=== PATIENT | female | born 1940 | race Caucasian/White ===

== ENCOUNTER → 2017-05-05 | Day surgery (SDC) | payer MEDICARE, OTHER, MEDICAID ==
[~2017-05-05] MED LIST: IPRATRPIUM/ALBUTEROL 0.5/2.5MG 3 ML NEBU.; LIDOCAINE 2% 100 MG/5 ML SYRINGE.; ONDANSETRON PF 4 MG/2 ML VIAL.; PROPOFOL 40 ML IV
[2017-05-05] MEDS: IV RINGERS,LACTATED 1000ML 1,000 ML IV (07:55)
[2017-05-05] MEDS: ONDANSETRON PF 4 MG/2 ML VIAL. IV (08:41)
[2017-05-05] MEDS: ALBUTEROL SULFATE 2.5 MG/3 ML NEBU. NEB (10:05)
== END ==
LOC: SURG 07:13
DX: K22.11 Ulcer of esophagus with bleeding (principal); K21.0 Gastro-esophageal reflux disease with esophagitis; K44.9 Diaphragmatic hernia without obstruction or gangrene; D50.9 Iron deficiency anemia, unspecified; I25.2 Old myocardial infarction; J45.909 Unspecified asthma, uncomplicated; F32.9 Major depressive disorder, single episode, unspecified; M19.90 Unspecified osteoarthritis, unspecified site; Z87.891 Personal history of nicotine dependence
CPT/HCPCS: 43239; 88305; J2405; J2704; J7620

== ENCOUNTER 2021-01-21 17:20 | Inpatient (IN) | payer MEDICARE, OTHER, MEDICAID ==
[~2021-01-21] VITALS: Ht 149.9 cm; Wt 43.6 kg
[~2021-01-21 17:20] MED LIST changes: +ATOR40TA PO; +Aspirin PO; +CITA40TA12 PO; +CLOP75TA57 PO; -IPRATRPIUM/ALBUTEROL 0.5/2.5MG 3 ML NEBU.; -LIDOCAINE 2% 100 MG/5 ML SYRINGE.; +LORA10TA68 PO; +LOSA-73 PO; +LOSA100T14 PO; +METO25TA2 PO; +NITR0.4T24 SL; +Nicotine TD; -ONDANSETRON PF 4 MG/2 ML VIAL.; -PROPOFOL 40 ML IV
[2021-01-21] MEDS ORDERED: FERR-36 PO (17:41)
[2021-01-21] MEDS ORDERED: TICA90TA PO (17:42)
[2021-01-21] MEDS ORDERED: CALC500T54 PO (17:44)
[2021-01-21 18:12] VITALS: BP 128/78
[2021-01-21 19:00] VITALS: BP 140/82
[2021-01-21 22:48] VITALS: BP 138/72
[2021-01-22 02:51] VITALS: BP 142/82
[2021-01-22 07:00] VITALS: BP 119/74
[2021-01-22] MEDS ORDERED: FERROUS SULFATE 325 MG TABLET. PO SCH (08:00)
[2021-01-22] MEDS: METOPROLOL SUCC 24HR ER 25 MG TAB.ER.24H. PO SCH ×2 (08:56→14:53)
[2021-01-22] MEDS: CALCIUM CARBONATE 500 MG TABLET PO SCH (08:56)
[2021-01-22 11:44] VITALS: BP 134/73
--- NOTE | 2021-01-22 12:13 | PDOC2 ---
GI CONSULT Date of Service: DATE: 01/22/21 TIME: 12:13 Reason For Consult: GI bleed HPI: HPI: 80 y/o female transferred from [facility] yesterday. We are asked to see this afternoon due to concern for GI bleed. Feeling weak for months. Found it difficult at home to walk from living room to restroom. Noted some shortness of breath. Says one of her doctors said it was her heart. H/o ID/CAD w/ stent placement in 2014 (started on ASA and Plavix) and 10/2020 at [facility] (Plavix stopped, replaced w/ Brilinta, continued on ASA). Associated w/ decreased appetite ("just not interested") and weight loss (30 pounds over 1-2 years, probably 7 pounds recently). At [facility] on Wednesday, felt like she was going to faint while on the toilet so she lowered herself to the ground and vomited. At [facility]: Hgb 6.5, MCV 81. Normal INR, plt, BUN. +Hemoccult, negative COVID. Unremarkable CXR. Transfused 1 unit pRBCs, Hgb improved to mid 8 range. H/o "indigestion" - she takes something OTC that starts w/ a P every day. No dysphagia. Vomits acid after getting out of the shower sometimes at home - chronic issue. No abd pain. No hematemesis or hematochezia. She indicates a lifelong h/o anemia and has been on iron QD for some time. Not sure about baseline Hgb range. Stools chronically dark. Iron previously caused constipation but she reports having diarrhea (loose with some chunks) since changing from Plavix to Brilinta in Oct. Has never had a blood transfusion til now. EGD and colonoscopy w/ Dr. Patrick in 2018 showed reflux (distal esophageal biopsy negative for Dior's, dysplasia, and malignancy) and diverticulosis - colonoscopy only to sigmoid due to angulation. No GB, liver, pancreas, or PUD history. Takes Tylenol sometimes, no NSAIDs. Says she was given regular food last night but hasn't been allowed to eat today. Having some indigestion now. No stools since Wednesday. Thinks transfusion helped her appetite - she's starving and would like to eat because the food is good here. She wants to know the plan. PMH: PMH: CAD w/ stents, COPD, HTN, arthritis, depression, tachycardia knee surgery, appendectomy FH: Family History: Cancer (breast) Social History: Smoke: Quit ALCOHOL: none Drugs: None ROS: GEN: Denies fevers, chills, sweats HEENT: Denies blurred vision, sore throat CV: Denies chest pain RESP: +SOA GI: Per HPI : Denies hematuria, dysuria ENDO: Denies weight changes NEURO: Denies confusion, dizziness MSK: +weakness SKIN: Denies jaundice, pruritus Vitals: Vitals: Vital Signs Date Time Temp Pulse Resp B/P (MAP) Pulse Ox O2 Delivery O2 Flow Rate FiO2 01/22/21 11:44 98.6 108 16 134/73 (93) 98 Room Air 98.6 Labs: Labs: Laboratory Tests Test 01/22/21 07:20 Hemoglobin 8.6 g/dL (12.0-15.5) Allergies: Coded Allergies: amlodipine (Verified Allergy, Intermediate, 05/05/17) morphine (Verified Allergy, Intermediate, 05/05/17) varenicline (Verified Allergy, Intermediate, 05/05/17) PE: GEN: NAD, thin HEENT: Atraumatic, PERRL LUNGS: CTAB anteriorly HEART: tachycardic (about 109) ABD: NABS, S/ND/NT EXTREMITY: No edema SKIN: No rashes, no jaundice NEURO/PSYCH: A & O 3 A/P: A/P: Near syncope, vomiting - no recurrence Weakness, SOA, anorexia, weight loss Anemia, +Hemoccult - apparently chronic, unclear baseline (10-12 range here in 2014) - no obvious bleeding, Hgb improved/stable w/ transfusion - on iron w/ chronically dark stools H/o GERD - 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 D/w Dr. Patrick - okay to eat per GI. Agree w/ PPI - change to PO. Continue iron - consider IV. Monitor Hgb, check anemia parameters. Defer any need for IVF to primary. WESLEY WHEELER Jan 22, 2021 12:13
--- NOTE | 2021-01-22 12:27 | HP ---
DATE OF SERVICE: 01/22/2021 ADMIT DATE: 01/21/2021 CHIEF COMPLAINT: Hematochezia and anemia. HISTORY OF PRESENT ILLNESS: The patient is a pleasant 80-year-old female who presented to [facility] 2 nights ago. They called me. I accepted her as a transfer but for some reason she did not come at night. She came the following day, which was last night. Now, she is on the medical floor. I am consulting GI for evaluation of her GI bleed. It should be noted that her hemoglobin was 6.5 as I recall when she was at [facility]. She did get a unit of blood. Today, her hemoglobin is up to 8.6. PAST MEDICAL HISTORY: Anemia, chronic anticoagulation, arrhythmias, depression, anxiety. ALLERGIES: AMLODIPINE, MORPHINE AND VARENICLINE. FAMILY HISTORY: Hypertension. SOCIAL HISTORY: She does not drink, smoke or take drugs. MEDICATIONS: Reviewed. Please refer to the MRAD. She is on iron, Brilinta, Toprol-XL, Celexa, calcium and aspirin. REVIEW OF SYSTEMS: GENERAL: No history of weight change, weakness or fevers. SKIN: No bruising, hair changes or rashes. EYES: No blurred, double or loss of vision. NOSE AND THROAT: No history of nosebleeds, hoarseness or sore throat. HEART: No history of palpitations, chest pain or shortness of breath on exertion. LUNGS: Denies cough, hemoptysis, wheezing or shortness of breath. GASTROINTESTINAL: She complains of hematochezia. GENITOURINARY: No history of frequency, urgency, hesitancy or nocturia. NEUROLOGIC: Denies history of numbness, tingling, tremor or weakness. PSYCHIATRIC: No history of panic, anxiety or depression. ENDOCRINE: No history of heat or cold intolerance, polyuria or polydipsia. EXTREMITIES: Denies muscle weakness, joint pain, pain on walking or stiffness. PHYSICAL EXAMINATION: VITALS: Within normal limits and are stable. GENERAL: No apparent distress. Alert and oriented. HEENT: Normal cephalic atraumatic, external auditory canals are patent. Eyes: Extraocular muscles are intact, pupils are equally round and reactive to light and accommodation. MUSCULOSKELETAL: Well developed, well nourished, good range of motion. ENDOCRINE: No thyromegaly was palpated. LYMPHATICS: No cervical chain or axillary nodes were noted. HEMATOPOIETIC: No bruising. NECK: Supple, no JVD, no thyromegaly was noted. LUNGS: Clear to auscultation in all lung beltre without rhonchi or wheezing. HEART: RRR, S1, S2 present. Peripheral pulses intact, no obvious murmurs were noted. ABDOMEN: Soft, nontender. Positive bowel sounds, no organomegaly, normal bowel sounds. EXTREMITIES: Without any cyanosis, clubbing, or edema. Pedal pulses intact, Homans sign is negative. NEUROLOGIC: Normal speech, normal tone. A and O x 3, moves all extremities, no obvious focal deficits. PSYCHIATRIC: Normal affect, normal mood. Stable. SKIN: No ulcerations or rashes, good skin turgor, no jaundice. VASCULAR: Good capillary refill, neurovascular bundle appears to be intact. LABORATORY DATA: Hemoglobin is 8.6. ASSESSMENT AND PLAN: Gastrointestinal bleed. The patient has been admitted. We will trend her hemoglobin. Consult GI. IV Protonix. We will continue her home meds except for the Brilinta and aspirin for now and hope to resume those in the next day or so if her hemoglobin stabilizes. SCDs to lower extremities. VICTOR HUGO/MERRICK DR: VICTOR HUGO/inocencia TID: [id number]
[2021-01-22] MEDS ORDERED: PANTOPRAZOLE IV PUSH 40 MG VIAL. IVP SCH (12:30)
[2021-01-22] MEDS: FERROUS SULFATE 325 MG TABLET. PO SCH ×2 (13:56→17:21)
--- NOTE | 2021-01-22 14:19 | NUR ---
SW following. Discussed with RN, pt from home alone, room air, NPO. RN advised no SW needs at this time. SW will continue to follow.
[2021-01-22 15:00] VITALS: BP 116/62
[2021-01-22 19:00] VITALS: BP 137/71
[2021-01-22] MEDS ORDERED: CITALOPRAM 20 MG TABLET. PO SCH (21:00)
[2021-01-22 23:00] VITALS: BP 150/83
[2021-01-23 03:00] VITALS: BP 137/80
[2021-01-23 06:17] LABS: BASO # 0.1 x10^3/uL (0.0-0.2); BASO % 1 % (0-3); EOS # 0.4 x10^3/uL (0.0-0.7); EOS % 4 % (0-3); HEMATOCRIT 27.4 % (36.0-47.0); HEMOGLOBIN 8.5 g/dL (12.0-15.5); LYMPH % 12 % (24-48); MEAN CORPUSCULAR HEMOGLOBIN 26 pg (25-35); MEAN CORPUSCULAR HGB CONC 31 g/dL (31-37); MEAN CORPUSCULAR VOLUME 83 fL (79-100); MONO % 11 % (0-9); NEUT # 6.1 x10^3/uL (1.8-7.7); NEUT % 71 % (31-73); PLATELET COUNT 552 x10^3/uL (140-400); RED CELL DISTRIBUTION WIDTH 17.3 % (11.5-14.5); WHITE BLOOD COUNT 8.5 x10^3/uL (4.0-11.0)
[2021-01-23 06:51] LABS: CALCIUM 7.6 mg/dL (8.5-10.1); CREATININE 1.1 mg/dL (0.6-1.0); POTASSIUM 4.1 mmol/L (3.5-5.1)
[2021-01-23 07:00] VITALS: BP 153/82
[2021-01-23] MEDS ORDERED: PANTOPRAZOLE 40 MG TABLET.DR. PO SCH (07:30)
[2021-01-23] MEDS: FERROUS SULFATE 325 MG TABLET. PO SCH ×2 (07:31→11:24)
[2021-01-23] MEDS: METOPROLOL SUCC 24HR ER 25 MG TAB.ER.24H. PO SCH (09:04)
[2021-01-23] MEDS: CALCIUM CARBONATE 500 MG TABLET PO SCH (09:04)
--- NOTE | 2021-01-23 10:29 | PDOC ---
Date of Service: DATE: 01/23/21 TIME: 10:24 Subjective: Subjective: Feels better. No bleeding. Eating some. Wants to go home. Doesn't want to resume Brilinta - she feels so much better off of it - also acknowledges she might feel better after transfusion. Objective: Vital Signs: Vital Signs Date Time Temp Pulse Resp B/P (MAP) Pulse Ox O2 Delivery O2 Flow Rate FiO2 01/23/21 09:04 90 153/82 01/23/21 07:38 Room Air 01/23/21 07:00 98.8 18 97 98.8 Labs: Laboratory Tests Test 01/23/21 03:55 White Blood Count 8.5 x10^3/uL Red Blood Count 3.30 x10^6/uL Hemoglobin 8.5 g/dL Hematocrit 27.4 % Mean Corpuscular Volume 83 fL Mean Corpuscular Hemoglobin 26 pg Mean Corpuscular Hemoglobin Concent 31 g/dL Red Cell Distribution Width 17.3 % Platelet Count 552 x10^3/uL Neutrophils (%) (Auto) 71 % Lymphocytes (%) (Auto) 12 % Monocytes (%) (Auto) 11 % Eosinophils (%) (Auto) 4 % Basophils (%) (Auto) 1 % Neutrophils # (Auto) 6.1 x10^3/uL Lymphocytes # (Auto) 1.0 x10^3/uL Monocytes # (Auto) 1.0 x10^3/uL Eosinophils # (Auto) 0.4 x10^3/uL Basophils # (Auto) 0.1 x10^3/uL Sodium Level 134 mmol/L Potassium Level 4.1 mmol/L Chloride Level 102 mmol/L Carbon Dioxide Level 25 mmol/L Anion Gap 7 Blood Urea Nitrogen 18 mg/dL Creatinine 1.1 mg/dL Estimated GFR (Cockcroft-Gault) 48.0 Glucose Level 62 mg/dL Calcium Level 7.6 mg/dL PE: GEN: NAD LUNGS: CTAB HEART: tachycardic ABD: S/ND/NT NEURO/PSYCH: A & O 3 A/P: Near syncopeIDA/ACD, +Hemoccult H/o GERD and diverticular disease - last scopes 2018 (incomplete colonoscopy due to angulation) CAD on ASA and Brilinta (currently held) -- Hgb stable, no obvious bleeding, tolerating diet, and feeling stronger w/ transfusions. Consider DC soon - needs PPI Rx. Continue iron in some form (increased from QD to TID here - tolerating so far) and PPI. Monitor Hgb as outpt w/ PCP, consider GI f/u if indicated. She does not want to resume Brilinta - she prefers Plavix - defer to primary/consider cardiology opinion (see Dr. Soto). Justicifation of Admission Dx: Justifications for Admission: Justification of Admission Dx: Yes WESLEY WHEELER Jan 23, 2021 10:29
[2021-01-23 11:00] VITALS: BP 122/69
--- NOTE | 2021-01-23 11:15 | PDOC ---
[employer] PROGRESS NOTE Date of Service DOS: DATE: 01/23/21 TIME: 11:10 Chief Complaint Chief Complaint Hematochezia anemia History of the following: - Anemia -Chronic Anticoagulation -Arrhythmias -Depression -Anxiety History of Present Illness History of Present Illness 01/23 Patient seen and examined, in NAD Chart Reviewed Discussed with RN and Supervisor [employer] Possible discharge home today Vitals/I&O Vitals/I&O: Vital Signs Date Time Temp Pulse Resp B/P (MAP) Pulse Ox O2 Delivery O2 Flow Rate FiO2 01/23/21 09:04 90 153/82 01/23/21 07:38 Room Air 01/23/21 07:00 98.8 18 97 98.8 I & O 01/22/21 01/22/21 01/23/21 15:00 23:00 07:00 Intake Total 0 ml Balance 0 ml Physical Exam General: Alert, Oriented X3 Heart: Regular rate Lungs: Clear Abdomen: Soft Extremities: No clubbing Skin: No rashes Labs Labs: Laboratory Tests Test 01/23/21 03:55 White Blood Count 8.5 x10^3/uL (4.0-11.0) Red Blood Count 3.30 x10^6/uL (3.50-5.40) Hemoglobin 8.5 g/dL (12.0-15.5) Hematocrit 27.4 % (36.0-47.0) Mean Corpuscular Volume 83 fL (79-100) Mean Corpuscular Hemoglobin 26 pg (25-35) Mean Corpuscular Hemoglobin Concent 31 g/dL (31-37) Red Cell Distribution Width 17.3 % (11.5-14.5) Platelet Count 552 x10^3/uL (140-400) Neutrophils (%) (Auto) 71 % (31-73) Lymphocytes (%) (Auto) 12 % (24-48) Monocytes (%) (Auto) 11 % (0-9) Eosinophils (%) (Auto) 4 % (0-3) Basophils (%) (Auto) 1 % (0-3) Neutrophils # (Auto) 6.1 x10^3/uL (1.8-7.7) Lymphocytes # (Auto) 1.0 x10^3/uL (1.0-4.8) Monocytes # (Auto) 1.0 x10^3/uL (0.0-1.1) Eosinophils # (Auto) 0.4 x10^3/uL (0.0-0.7) Basophils # (Auto) 0.1 x10^3/uL (0.0-0.2) Sodium Level 134 mmol/L (136-145) Potassium Level 4.1 mmol/L (3.5-5.1) Chloride Level 102 mmol/L (98-107) Carbon Dioxide Level 25 mmol/L (21-32) Anion Gap 7 (6-14) Blood Urea Nitrogen 18 mg/dL (7-20) Creatinine 1.1 mg/dL (0.6-1.0) Estimated GFR (Cockcroft-Gault) 48.0 Glucose Level 62 mg/dL (70-99) Calcium Level 7.6 mg/dL (8.5-10.1) Assessment and Plan Assessmemt and Plan Hematochezia anemia History of the following: - Anemia -Chronic Anticoagulation -Arrhythmias -Depression -Anxiety PLAN: Probable discharge to home today For now continue the following: -Iron Supplementation -Protonix -Cardiac Monitoring -Encourage PO intake -Trend Labs -DVT Prophylaxis -Home Meds -Full Code Comment Review of Relevant I have reviewed the following items neville (where applicable) has been applied. Medications: Current Medications Medications (Trade) Dose Ordered Sig/Violet Route PRN Reason Start Time Stop Time Status Last Admin Dose Admin Citalopram Hydrobromide (CeleXA) 40 mg HS PO 01/22/21 21:00 01/22/21 20:28 Pantoprazole Sodium (PROTONIX VIAL for IV PUSH) 40 mg DAILYAC IVP 01/22/21 12:30 01/22/21 12:50 DC 01/22/21 12:31 Pantoprazole Sodium (Protonix) 40 mg DAILYAC PO 01/23/21 07:30 01/23/21 07:31 Ferrous Sulfate (Feosol) 325 mg TIDWMEALS PO 01/22/21 13:30 01/23/21 07:31 Justifications for Admission Other Justification YADI THORNTON III DO Jan 23, 2021 11:15
[2021-01-23] MEDS ORDERED: PANT40TA77 PO (11:39)
--- NOTE | 2021-01-23 12:35 | DS ---
DATE OF DISCHARGE: 01/23/2021 ADMITTING DIAGNOSIS: Gastrointestinal bleed. DISCHARGE DIAGNOSES: Resolving gastrointestinal bleed, history of gastroesophageal reflux disease, chronic anticoagulation, chronic anemia, hypertension, previous arrhythmias, history of diverticulosis and coronary artery disease. CONSULTS: GI. PROCEDURES: None. HOSPITAL COURSE: The patient is a pleasant, middle-aged female who presented with GI bleeding. She was admitted. We transfused her. We gave her IV proton pump inhibitors and consulted GI. Today, I saw and examined the patient. She is doing well. Her hemoglobin is stable. We plan to discharge. DISPOSITION: Home. ACTIVITY: As tolerated. DIET: Low sodium. DISCHARGE MEDICATIONS: Please see the MRAD. They are Protonix 40 a day, aspirin 81 a day, calcium, Celexa 40 a day, iron 325 b.i.d., metoprolol XL 25 a day and Brilinta 90 b.i.d. Total time [address]: Ericka TID: [id number]
--- NOTE | 2021-01-23 12:59 | NUR ---
SW following. Discussed with RN, discharge order for home with self care. RN advised no SW needs.
[2021-01-23 15:17] VITALS: BP 131/68
--- NOTE | 2021-01-23 15:39 | NUR ---
Pt left unit at approx 1530 by wheelchair via private vehicle, accompanied by friend. Pt's IV removed without complication, VSS. Discharge paperwork discussed with pt and friend. Additional questions addressed, pt verbalized understanding.
== END 2021-01-23 15:41 | disposition home or self-care (01) | DRG 379 ==
LOC: 5 NORTH 17:20
PROVIDERS: ADMIT Internal Medicine; ATTEND Internal Medicine
DX: K92.2 Gastrointestinal hemorrhage, unspecified (principal); D64.9 Anemia, unspecified; F32.A Depression, unspecified; F41.9 Anxiety disorder, unspecified; I10 Essential (primary) hypertension; I25.10 Atherosclerotic heart disease of native coronary artery without angina pectoris; I25.2 Old myocardial infarction; J44.9 Chronic obstructive pulmonary disease, unspecified; K59.00 Constipation, unspecified; M19.90 Unspecified osteoarthritis, unspecified site; Z20.822 Contact with and (suspected) exposure to COVID-19; Z79.01 Long term (current) use of anticoagulants; Z80.3 Family history of malignant neoplasm of breast; Z82.49 Family history of ischemic heart disease and other diseases of the circulatory system; Z95.5 Presence of coronary angioplasty implant and graft; K21.9 Gastro-esophageal reflux disease without esophagitis; Z88.8 Allergy status to other drugs, medicaments and biological substances
CPT/HCPCS: 36415; 80048; 82607; 83540; 83550; 85018; 85025; 85045; C9113; G0378